=== PATIENT | male | born 1960 | race Caucasian/White ===

== ENCOUNTER 2016-11-12 05:41 | Outpatient (CLI) | payer OTHER ==
[~2016-11-12] VITALS: Ht 188 cm; Wt 106.6 kg
[2016-11-12] MEDS ORDERED: SITA100T12 PO (11:29)
[2016-11-12] MEDS ORDERED: PRAV40TA2 PO (11:29)
[2016-11-12] MEDS ORDERED: METF1000 PO (11:29)
[2016-11-12] MEDS ORDERED: GLYB5TAB6 PO (11:29)
[2016-11-12] MEDS ORDERED: MAGN400T29 PO (11:29)
[2016-11-13] MEDS ORDERED: HYDR-3812 PO (11:00)
== END 2016-11-12 11:58 ==
LOC: PREOP 05:41
PROVIDERS: ATTEND Surgery
DX: Z01.818 Encounter for other preprocedural examination (principal); L98.9 Disorder of the skin and subcutaneous tissue, unspecified

== ENCOUNTER 2016-11-13 08:07 | Day surgery (SDC) | payer OTHER ==
[~2016-11-13] VITALS: Ht 188 cm; Wt 106.6 kg
[~2016-11-13 08:07] MED LIST: GLYB5TAB6 PO; MAGN400T29 PO; METF1000 PO; PRAV40TA2 PO; SITA100T12 PO
[2016-11-13] MEDS ORDERED: LACTATED RINGERS 1,000 ML IV PRN (08:30)
[2016-11-13] MEDS ORDERED: ceFAZolin 2 GM/NS 50 ML IV ONE (08:45)
[2016-11-13] MEDS ORDERED: CATHETER FLUSH 10 ML SYR IV PRN (08:45)
[2016-11-13 09:00] VITALS: BP 148/103
--- NOTE | 2016-11-13 09:13 | Progress Note-Pre Operative ---
Pre-Operative Progress Note H&P Reviewed The H&P was reviewed, patient examined and no changes noted. Date Seen by Provider: Nov 13, 2016 Time Seen by Provider: 09:13 Date H&P Reviewed: Nov 13, 2016 Time H&P Reviewed: 09:13 Pre-Operative Diagnosis: lesion right little finger PAULINE ARRIAGA MD Nov 13, 2016 9:13 am
[2016-11-13] MEDS ORDERED: fentaNYL INJECTION 100 MCG/2 ML AMP ONE ×2 (09:16→10:38)
[2016-11-13] MEDS ORDERED: MIDAZOLAM 2 MG/2 ML (VERSED) VIAL ONE (09:16)
[2016-11-13] MEDS ORDERED: BUP/EPI 0.25% 1:200,000 (MARCAINE) 10 ML VIAL IJ ONE ×2 (09:20→09:21)
[2016-11-13] MEDS ORDERED: EPINEPHrine INJECTION 1 MG/ML AMP ONE ×2 (09:20)
[2016-11-13] MEDS ORDERED: NS (IVPB) 100 ML ONE (09:27)
[2016-11-13] MEDS ORDERED: proPOfol 200 MG/20 ML (DIPRIVAN) VIAL IV ONE (10:54)
[2016-11-13] MEDS ORDERED: SEVOFLURANE (ULTANE) 15 ML INHAL SOLN ONE (10:54)
[2016-11-13] MEDS ORDERED: LIDOCAINE PF 2% 5 ML (XYLOCAINE) VIAL ONE (10:54)
[2016-11-13] MEDS ORDERED: ONDANSETRON 4 MG/2 ML (SDV) Z0FRAN ONE (10:54)
[2016-11-13] MEDS ORDERED: LACTATED RINGERS 1,000 ML IV ONE (10:54)
--- NOTE | 2016-11-13 10:59 | Progress Note-Post Operative ---
Post-Operative Progess Note Surgeon (s)/Hydraulic Plumber (s) Surgeon PAULINE ARRIAGA MD Hydraulic Plumber: not applicable Pre-Operative Diagnosis lesion right little finger Post-Operative Diagnosis pyogenic granuloma Procedure & Operative Findings Date of Procedure 11/13/16 Procedure Performed/Findings excision with full-thickness skin grafting(6 cm) Anesthesia Type Gen. Estimated Blood Loss Estimated blood loss (mL): minimal Specimens/Packing Specimens Removed pyogenic granuloma PAULINE ARRIAGA MD Nov 13, 2016 10:59 am
[2016-11-13] MEDS ORDERED: HYDR-3812 PO (11:00)
--- NOTE | 2016-11-13 11:01 | Discharge Inst-Simple/Standard ---
Discharge Inst-Standard Discharge Medications New, Converted or Re-Newed RX: RX on Chart Patient Instructions/Follow Up Plan of Care/Instructions/FU: right upper extremity to be kept elevated. Dressings to stay intact until Friday. Follow-up with my nurse on Friday morning for dressing change Activity as Tolerated: Yes Discharge Diet: No Restrictions PAULINE ARRIAGA MD Nov 13, 2016 11:01 am
[2016-11-13] MEDS ORDERED: MEPERIDINE (DEMEROL) INJ 50 MG/ML IVP PRN (11:15)
[2016-11-13] MEDS ORDERED: morphine INJ 10 MG/ML 1ML (SYR OR VIAL) IVP PRN (11:15)
[2016-11-13] MEDS ORDERED: ONDANSETRON 4 MG/2 ML (SDV) Z0FRAN IVP PRN (11:15)
[2016-11-13 11:55] VITALS: BP 131/92
[2016-11-13 12:25] VITALS: BP 136/91
[2016-11-13 12:55] VITALS: BP 127/89
--- NOTE | 2016-11-13 19:02 | OPERATIVE REPORT ---
DATE OF SERVICE: 11/13/2016 PREOPERATIVE DIAGNOSIS: A 3 cm lesion, right little finger. POSTOPERATIVE DIAGNOSIS: Pyogenic granuloma, right little finger. OPERATIONS: 1. Excision (3 x 2 cm). 2. Full thickness skin grafting (6 cm2). SURGEON: Pauline Arriaga MD ANESTHESIA: General anesthesia. BLOOD LOSS: Minimal. FLUIDS: 800 mL of crystalloid. TYPE OF WOUND: Type 2 (clean-contaminated wound). INDICATION FOR PROCEDURE: This gentleman presented with a vascular, pedunculated lesion over the end of his right little finger along the dorsal aspect, of short duration. He was offered excision to establish a definitive diagnosis and cover the defect with a full thickness skin graft. Informed consent was obtained after reviewing the procedure and complications of postoperative hematoma, infection and failure of the graft. DESCRIPTION OF PROCEDURE: He was placed supine on the operating table and general anesthesia induced. Ancef 1 gram was administered intravenously as prophylaxis against wound infection. Sequential compression devices were placed around his legs, to minimize the risk of venous thrombosis. His right upper extremity was prepared and draped in the usual sterile manner. A full-thickness skin graft was obtained from his upper arm (4 x 3 cm) and prepared after removing the subdermal fat. It was placed in sterile saline, in preparation for grafting. With regard to the primary lesion, an elliptical incision about 3 x 2 cm was made and the excision completed. It was confirmed to be a pyogenic granuloma by the pathologist. Hemostasis was achieved using cautery and topical dilute epinephrine. The full thickness graft was then placed over the excision site, being secured with 4-0 Vicryl sutures. A nonadherent dressing was then applied. He tolerated the procedure well, was extubated in the operating room and taken to the recovery room in stable condition. Job ID: [id number] DocumentID: [id number] Dictated Date: 11/13/2016 10:58:44 Heavy Cleaner Date: 11/13/2016 15:50:20 Dictated By: PAULINE ARRIAGA MD [facility]
== END 2016-11-13 13:10 | disposition home or self-care (01) ==
LOC: SDC 08:07
PROVIDERS: ATTEND Surgery
DX: L98.0 Pyogenic granuloma (principal); E78.5 Hyperlipidemia, unspecified; E11.9 Type 2 diabetes mellitus without complications; Z79.899 Other long term (current) drug therapy
CPT/HCPCS: 82962; 87081